=== PATIENT | female | born 1995 | race Caucasian/White ===

== ENCOUNTER 2018-10-07 11:04 | Day surgery (SDC) | payer OTHER ==
[~2018-10-07] VITALS: Ht 175.3 cm; Wt 63.6 kg
[2018-10-07] MEDS ORDERED: SODIUM CHLORIDE 0.9% 1,000 ML IV SCH (11:33)
[2018-10-07 11:44] VITALS: BP 141/104
[2018-10-07] MEDS ORDERED: DOXY100C2 PO (11:51)
[2018-10-07] MEDS ORDERED: AMIT50TA PO (11:51)
[2018-10-07] MEDS ORDERED: NORE-86 PO (11:51)
[2018-10-07] MEDS ORDERED: CLIN45GE4 TP (11:51)
[2018-10-07 11:57] LABS: BASOPHILS # (AUTO) 0.01 x10^3/uL (0-0.1); BASOPHILS % (AUTO) 0 % (0-1); EOSINOPHILS % (AUTO) 1 % (1-7); LYMPHOCYTES # (AUTO) 2.12 x10^3/uL (1-3.4); LYMPHOCYTES % (AUTO) 30 % (22-44); MD NO; MEAN CORPUSCULAR HEMOGLOBIN 29.5 pg (27.0-34.8); MEAN CORPUSCULAR HGB CONC 33.6 g/dL (32.4-35.8); MEAN CORPUSCULAR VOLUME 87.8 fL (80-100); MEAN PLATELET VOLUME 7.9 fL (7.4-10.4); MONOCYTES # (AUTO) 0.43 x10^3/uL (0.2-0.8); MONOCYTES % (AUTO) 6 % (2-9); NEUTROPHILS # (AUTO) 4.43 x10^3/uL (1.8-6.8); NEUTROPHILS % (AUTO) 62 % (42-75); PLATELET COUNT 373 x10^3/uL (130-400); RED BLOOD COUNT 4.68 x10^6/uL (3.82-5.3); RED CELL DISTRIBUTION WIDTH 12.6 % (9.6-15.2)
[2018-10-07 12:08] LABS: ANION GAP 7 mmol/L (5-15); CHLORIDE 108 mmol/L (98-107); INTERNATIONAL NORMALIZED RATIO 1.01 (0.93-1.1); PROTHROMBIN TIME 10.7 Seconds (9.6-11.5)
[2018-10-07 12:13] LABS: CREATININE 0.65 mg/dL (0.55-1.02)
[2018-10-07] MEDS ORDERED: MIDAZOLAM 1 MG/ML, 2ML ONE (13:00)
[2018-10-07] MEDS ORDERED: FENTANYL PF 250 MCG/5ML ONE (13:01)
[2018-10-07] MEDS ORDERED: LIDOCAINE 1%, 20ML ONE (13:05)
[2018-10-07] MEDS ORDERED: DEXAMETHASONE 4 MG/ML, 1ML ONE (13:40)
[2018-10-07] MEDS ORDERED: PROPOFOL 10 MG/ML, 20ML ONE (13:40)
[2018-10-07] MEDS ORDERED: PHENYLEPHRINE 10 MG/ML ONE (13:40)
[2018-10-07] MEDS ORDERED: ROCURONIUM 10 MG/ML,10ML ONE (13:40)
[2018-10-07] MEDS ORDERED: SUCCINYLCHOLINE 20 MG/ML, 10ML ONE (13:40)
[2018-10-07] MEDS ORDERED: ONDANSETRON 2MG/ML, 2ML ONE (13:40)
[2018-10-07] MEDS ORDERED: ISOPROTERENOL 0.2MG/ML, 5ML ONE (15:14)
[2018-10-07] MEDS ORDERED: MIDAZOLAM 1 MG/ML, 2ML IV PRN (16:30)
[2018-10-07] MEDS ORDERED: MORPHINE SULFATE 4 MG/ML, 1ML IVPush PRN (16:30)
[2018-10-07] MEDS ORDERED: OXYcodone 5 MG/5 ML ORAL.SOL UDC PO PRN (16:30)
[2018-10-07] MEDS ORDERED: EPHEDRINE 50 MG/ML, 1ML IVPush PRN (16:30)
[2018-10-07] MEDS ORDERED: PROMETHAZINE 12.5 MG SUPP PR PRN (16:30)
[2018-10-07] MEDS ORDERED: ACETAMINOPHEN 325 MG TABLET PO PRN ×2 (16:30→18:30)
[2018-10-07] MEDS ORDERED: PROMETHAZINE 25 MG SUPP PR PRN (16:30)
[2018-10-07] MEDS ORDERED: DIPHENHYDRAMINE 50 MG/ML, 1ML IVPush PRN (16:30)
[2018-10-07] MEDS ORDERED: LABETALOL 5MG/ML, 20ML IV PRN (16:30)
[2018-10-07] MEDS ORDERED: PROMETHAZINE 25 MG/ML, 1ML IV PRN (16:30)
[2018-10-07] MEDS ORDERED: ONDANSETRON ODT 8 MG PO PRN (16:30)
[2018-10-07] MEDS ORDERED: EPHEDRINE 50 MG/ML, 1ML IM PRN (16:30)
[2018-10-07] MEDS ORDERED: FENTANYL PF 100 MCG/2ML IV PRN (16:30)
[2018-10-07] MEDS ORDERED: ONDANSETRON 2MG/ML, 2ML IV PRN ×2 (16:30→18:30)
[2018-10-07] MEDS ORDERED: MEPERIDINE/PF 25MG/0.5ML IVPush PRN (16:30)
[2018-10-07 19:47] VITALS: BP 138/91
== END 2018-10-07 22:25 | disposition home or self-care (01) ==
LOC: CACL 11:04 → 5SO 16:35 → CACL 22:25
PROVIDERS: ATTEND Internal Medicine Cardiovascular Disease
DX: I47.1 Supraventricular tachycardia (principal); Z79.01 Long term (current) use of anticoagulants
CPT/HCPCS: 36415; 80048; 84703; 85025; 85610; 85730; 93620; 93623; C1730; C1894; J0330; J1100; J2250; J2370; J2405; J2704; J3010; J3490; G0378

== ENCOUNTER 2018-10-29 11:04 | Day surgery (SDC) | payer OTHER ==
[~2018-10-29] VITALS: Ht 175.3 cm; Wt 63.6 kg
[~2018-10-29 11:04] MED LIST: AMIT50TA PO; CLIN45GE4 TP; DOXY100C2 PO; NORE-86 PO
[2018-10-29] MEDS ORDERED: SODIUM CHLORIDE 0.9% 1,000 ML IV SCH (11:35)
[2018-10-29 11:44] VITALS: BP 134/96
[2018-10-29 12:09] LABS: BASOPHILS # (AUTO) 0.02 x10^3/uL (0-0.1); BASOPHILS % (AUTO) 1 % (0-1); EOSINOPHILS # (AUTO) 0.08 x10^3/uL (0-0.4); EOSINOPHILS % (AUTO) 1 % (1-7); LYMPHOCYTES # (AUTO) 1.89 x10^3/uL (1-3.4); LYMPHOCYTES % (AUTO) 36 % (22-44); MD NO; MEAN CORPUSCULAR HEMOGLOBIN 29.7 pg (27.0-34.8); MEAN CORPUSCULAR HGB CONC 33.4 g/dL (32.4-35.8); MEAN PLATELET VOLUME 7.9 fL (7.4-10.4); MONOCYTES # (AUTO) 0.32 x10^3/uL (0.2-0.8); MONOCYTES % (AUTO) 6 % (2-9); NEUTROPHILS % (AUTO) 56 % (42-75); PLATELET COUNT 365 x10^3/uL (130-400); RED BLOOD COUNT 4.46 x10^6/uL (3.82-5.3); RED CELL DISTRIBUTION WIDTH 12.8 % (9.6-15.2)
[2018-10-29 12:16] LABS: INTERNATIONAL NORMALIZED RATIO 1.02 (0.93-1.1); PROTHROMBIN TIME 10.8 Seconds (9.6-11.5)
[2018-10-29 12:18] LABS: ANION GAP 8 mmol/L (5-15); CALCIUM 8.5 mg/dL (8.5-10.1); CHLORIDE 109 mmol/L (98-107)
[2018-10-29 12:23] LABS: CREATININE 0.69 mg/dL (0.55-1.02)
[2018-10-29] MEDS ORDERED: MIDAZOLAM 1 MG/ML, 5ML ONE (14:25)
[2018-10-29] MEDS ORDERED: ADENOSINE 6 MG/2 ML ONE (14:25)
[2018-10-29] MEDS ORDERED: FENTANYL PF 100 MCG/2ML ONE (14:25)
[2018-10-29] MEDS ORDERED: LIDOCAINE 2%, 20ML ONE (14:26)
[2018-10-29] MEDS ORDERED: ISOPROTERENOL 0.2MG/ML, 5ML ONE (14:26)
[2018-10-29] MEDS ORDERED: HEPARIN 1,000 UNITS/ML, 10ML ONE (14:26)
[2018-10-29] MEDS ORDERED: ISOPROTERENOL 0.2MG/ML, 1ML ONE (16:06)
[2018-10-29] MEDS ORDERED: LIDOCAINE 1%, 20ML ONE (16:17)
[2018-10-29 18:30] VITALS: BP 147/102
[2018-10-29] MEDS ORDERED: ONDANSETRON 2MG/ML, 2ML IV PRN (18:30)
[2018-10-29] MEDS ORDERED: ZOLPIDEM 5MG TABLET PO PRN (21:00)
== END 2018-10-29 22:36 | disposition home or self-care (01) ==
LOC: CACL 11:04 → 5SO 17:27 → CACL 22:36
PROVIDERS: ATTEND Internal Medicine Cardiovascular Disease
DX: I48.91 Unspecified atrial fibrillation (principal); I47.1 Supraventricular tachycardia
CPT/HCPCS: 36415; 80048; 84703; 85025; 85610; 85730; 93613; 93620; 93621; 99156; 99157; C1730; C1894; J0153; J1644; J2250; J3010; J3490; G0378